=== PATIENT | female | born 1950 | race African-American/Black ===

== ENCOUNTER 2020-11-24 13:24 | Emergency (ER) | payer MEDICARE, MEDICAID ==
[~2020-11-24] VITALS: Ht 165.1 cm; Wt 62.0 kg
[2020-11-24 13:38] VITALS: BP 216/105
[2020-11-24 14:58] LABS: BASOPHILS % (AUTO) 1 % (0-1); EOSINOPHILS % (AUTO) 2 % (1-7); LYMPHOCYTES % (AUTO) 33 % (22-44); MEAN CORPUSCULAR HEMOGLOBIN 33.4 pg (27.0-34.8); MEAN CORPUSCULAR HGB CONC 33.5 g/dL (32.4-35.8); MEAN PLATELET VOLUME 8.7 fL (7.4-10.4); MONOCYTES % (AUTO) 7 % (2-9); NEUTROPHILS % (AUTO) 56 % (42-75); PLATELET COUNT 154 x10^3/uL (130-400); RED BLOOD COUNT 4.35 x10^6/uL (3.82-5.3); RED CELL DISTRIBUTION WIDTH 14.8 % (9.6-15.2)
[2020-11-24 14:59] LABS: MD NO
[2020-11-24 15:09] LABS: ALBUMIN 3.9 g/dL (3.4-5.0); ANION GAP 6 mmol/L (5-15); CALCIUM 9.7 mg/dL (8.5-10.1); CHLORIDE 105 mmol/L (98-107); CREATININE 0.75 mg/dL (0.55-1.02)
--- NOTE | 2020-11-24 16:45 | NUR ---
[employer]: pt to [facility] from [facility]
--- NOTE | 2020-11-24 17:00 | NUR ---
BREAK RN: PT SITTING IN CHAIR, AGITATED ("Y'ALL MAKING ME SIT OUT THERE & WAIT WITH MY BLOOD PRESSURE IN THE 200'S. UNBELIEVABLE! I KNOW IT'S BECAUSE I'M BLACK. SO, EXCUSE ME IF I'M SHORT WITH Y'ALL."), NAD, COMFORT MEASURES PROVIDED, CALL LIGHT WITHIN REACH.
[2020-11-24] MEDS ORDERED: KETOROLAC 60 MG/2 ML ONE (17:23)
[2020-11-24] MEDS ORDERED: HYDROcodone/APAP 5/325 TABLET ONE (17:24)
[2020-11-24] MEDS ORDERED: KETOROLAC 30 MG/1 ML IM ONE (17:30)
[2020-11-24] MEDS ORDERED: HYDROcodone/APAP 5/325 TABLET PO ONE (17:30)
== END 2020-11-24 18:05 | disposition home or self-care (01) ==
LOC: ED 17:43
DX: M06.832 Other specified rheumatoid arthritis, left wrist (principal); I10 Essential (primary) hypertension
CPT/HCPCS: 29125; 36415; 73110; 80048; 82040; 85025; 96374; 99284; J1885